=== PATIENT | male | born 1980 | race African-American/Black ===

== ENCOUNTER 2019-01-26 08:05 | Emergency (ER) | payer MEDICARE, MEDICAID ==
[~2019-01-26] VITALS: Ht 195.6 cm; Wt 148.0 kg
[~2019-01-26 08:05] MED LIST: HYDROCHLOROTHIAZIDE; INSULIN; LISINOPRIL; LORAZEPAM; METFORMIN; PANTOPRAZOLE; RISPERIDONE; TRAZODONE
[2019-01-26] MEDS ORDERED: LIDOCAINE HCL/PF 1% 10 MG/ML 5ML VIAL IJ ONE (08:45)
[2019-01-26 08:59] LABS: BASOPHILS % 0.4 % (0.0-2.0); EOSINOPHILS % 1.3 % (0.0-5.0); HEMATOCRIT. 36.8 % (42.0-52.0); HEMOGLOBIN. 12.3 g/dL (14.0-18.0); LYMPHOCYTES % 40.2 % (20.0-50.0); MEAN CORPUSCULAR HEMOGLOBIN 31.3 pg (28.0-32.0); MEAN CORPUSCULAR VOLUME 93.5 fL (80.0-94.0); MEAN PLATELET VOLUME 8.6 fl (7.4-10.4); MONOCYTES % 8.9 % (2.0-8.0); NEUTROPHILS % 49.2 % (40.0-76.0); PLATELET 249 x1000/uL (130-400); RED BLOOD CELL COUNT 3.94 mill/uL (4.7-6.1); RED CELL DISTRIBUTION WIDTH 13.9 % (11.6-14.6)
[2019-01-26 09:03] LABS: CLARITY URINE CLEAR (CLEAR); COLOR URINE YELLOW (YELLOW); KETONES URINE TRACE (NEGATIVE); LEUKOCYTE ESTERASE URINE NEGATIVE (NEGATIVE); NITRITE URINE NEGATIVE (NEGATIVE); OCCULT BLOOD URINE NEGATIVE (NEGATIVE); PH URINE 6.5 (4.5-8.0); PROTEIN URINE NEGATIVE (NEGATIVE); SPECIFIC GRAVITY URINE 1.043 (1.005-1.030)
[2019-01-26 09:07] LABS: CHLORIDE 104 mEq/L (98-107)
[2019-01-26 09:11] LABS: ETHANOL BLOOD < 10 mg/dL
[2019-01-26 09:16] LABS: *BARBITURATES SCREEN URINE NEGATIVE (NEGATIVE); *BENZODIAZEPINES SCREEN URINE NEGATIVE (NEGATIVE); *COCAINE SCREEN URINE NEGATIVE (NEGATIVE); METHADONE URINE SCREEN NEGATIVE (NEGATIVE)
[2019-01-26 09:17] LABS: CANNABINOID URINE SCREEN NEGATIVE (NEGATIVE); OPIATES URINE SCREEN NEGATIVE (NEGATIVE); PHENCYCLIDINE URINE SCREEN NEGATIVE (NEGATIVE)
[2019-01-26 09:19] LABS: *AMPHETAMINES SCREEN URINE NEGATIVE (NEGATIVE)
[2019-01-26 12:50] VITALS: BP 147/89
== END 2019-01-26 12:51 | disposition home or self-care (01) ==
LOC: ER 08:20
DX: S61.511A Laceration without foreign body of right wrist, initial encounter (principal); X58.XXXA Exposure to other specified factors, initial encounter; Y93.89 Activity, other specified; Y92.89 Other specified places as the place of occurrence of the external cause; Y99.8 Other external cause status; J45.909 Unspecified asthma, uncomplicated; F32.9 Major depressive disorder, single episode, unspecified; E11.9 Type 2 diabetes mellitus without complications; I10 Essential (primary) hypertension; F17.200 Nicotine dependence, unspecified, uncomplicated; Z98.890 Other specified postprocedural states; Z79.899 Other long term (current) drug therapy; Z88.1 Allergy status to other antibiotic agents; Z88.8 Allergy status to other drugs, medicaments and biological substances
CPT/HCPCS: 12002; 36415; 80053; 80305; 80320; 81003; 82962; 85025; 99283; J3490; G0480

== ENCOUNTER 2024-01-24 18:00 | Emergency (ER) | payer OTHER, BC, MEDICAID ==
[~2024-01-24] VITALS: Ht 170.2 cm; Wt 85.0 kg
[2024-01-24 18:03] VITALS: BP 148/86; PULSE 70; RESP 16; TEMP 98.4; O2SAT 100
== END 2024-01-24 19:00 | disposition left against medical advice (07) ==
LOC: ER 18:00
DX: R07.89 Other chest pain (principal); Z53.21 Procedure and treatment not carried out due to patient leaving prior to being seen by health care provider

== ENCOUNTER 2024-06-03 08:16 | Emergency (ER) | payer OTHER, BC ==
[~2024-06-03] VITALS: Ht 205.7 cm; Wt 138.4 kg
[2024-06-03 08:18] VITALS: O2SAT 96
[2024-06-03 08:19] VITALS: BP 162/85; RESP 16; TEMP 37.1; O2SAT 98
[2024-06-03 08:38] VITALS: PULSE 88
[2024-06-03 08:58] VITALS: TEMP 98.7
[2024-06-03] MEDS: ACETAMINOPHEN 325MG TABLET PO ONE (08:58)
[2024-06-03] MEDS ORDERED: ACET-2708 MT (09:36)
[2024-06-03] MEDS: BACITRACIN ZINC OINT UDPKT TOP ONE (09:53)
== END 2024-06-03 09:54 | disposition home or self-care (01) ==
LOC: ER 08:16
DX: S00.83XA Contusion of other part of head, initial encounter (principal); E11.9 Type 2 diabetes mellitus without complications; Z88.8 Allergy status to other drugs, medicaments and biological substances; Z79.899 Other long term (current) drug therapy; Z86.73 Personal history of transient ischemic attack (TIA), and cerebral infarction without residual deficits; W01.0XXA Fall on same level from slipping, tripping and stumbling without subsequent striking against object, initial encounter; Y93.89 Activity, other specified; Y92.89 Other specified places as the place of occurrence of the external cause; Y99.8 Other external cause status
CPT/HCPCS: 70486; 99284

== ENCOUNTER 2024-08-19 06:53 | Emergency (ER) | payer OTHER, BC ==
[~2024-08-19] VITALS: Ht 199.4 cm; Wt 110.5 kg
[~2024-08-19 06:53] MED LIST changes: +ACET-2708 MT
[2024-08-19 07:02] VITALS: O2SAT 99
[2024-08-19] MEDS: ACETAMINOPHEN 325MG TABLET PO ONE (08:16)
[2024-08-19] MEDS: IBUPROFEN 800MG TABLET PO ONE (08:16)
[2024-08-19 11:16] VITALS: BP 131/73; PULSE 81; RESP 18; TEMP 36.8; O2SAT 97
[2024-08-19] MEDS ORDERED: ACET-2708 MT (11:19)
[2024-08-19] MEDS ORDERED: IBUP-1525 MT (11:19)
== END 2024-08-19 11:20 | disposition home or self-care (01) ==
LOC: ER 06:53
DX: S60.222A Contusion of left hand, initial encounter (principal); S30.0XXA Contusion of lower back and pelvis, initial encounter; J45.909 Unspecified asthma, uncomplicated; F32.A Depression, unspecified; E11.9 Type 2 diabetes mellitus without complications; Z91.010 Allergy to peanuts; Z88.8 Allergy status to other drugs, medicaments and biological substances; Z88.5 Allergy status to narcotic agent; Z79.899 Other long term (current) drug therapy; Z86.73 Personal history of transient ischemic attack (TIA), and cerebral infarction without residual deficits; Y04.0XXA Assault by unarmed brawl or fight, initial encounter; Y93.89 Activity, other specified; Y92.89 Other specified places as the place of occurrence of the external cause; Y99.8 Other external cause status
CPT/HCPCS: 72100; 73100; 73130; 99284

== ENCOUNTER 2024-08-22 10:27 | Emergency (ER) | payer OTHER, BC ==
[~2024-08-22] VITALS: Ht 193 cm; Wt 113.0 kg
[~2024-08-22 10:27] MED LIST changes: +IBUP-1525 MT
[2024-08-22 10:31] VITALS: O2SAT 95
[2024-08-22 11:08] LABS: CLARITY URINE CLEAR (CLEAR); COLOR URINE YELLOW (YELLOW); GLUCOSE URINE 3+ (NEGATIVE); KETONES URINE NEGATIVE (NEGATIVE); LEUKOCYTE ESTERASE URINE NEGATIVE (NEGATIVE); NITRITE URINE NEGATIVE (NEGATIVE); OCCULT BLOOD URINE NEGATIVE (NEGATIVE); PH URINE 6.5 (4.5-8.0); PROTEIN URINE 1+ (NEGATIVE); SPECIFIC GRAVITY URINE 1.036 (1.005-1.030); UROBILINOGEN URINE 0.2 E.U./dL (0.2-1.0)
[2024-08-22 11:22] LABS: BACTERIA URINE NONE SEEN; RBC URINE 0-2 /hpf (0-2); SQUAMOUS EPITHELIAL CELL URINE RARE /lpf (RARE/1+); WBC URINE 0-2 /hpf (0-2); YEAST URINE NONE SEEN
[2024-08-22 11:25] LABS: BASOPHILS % 0.5 % (0.0-2.0); EOSINOPHILS % 1.1 % (0.0-5.0); HEMATOCRIT. 34.5 % (42.0-52.0); HEMOGLOBIN. 11.3 g/dL (14.0-18.0); LYMPHOCYTES % 31.8 % (20.0-50.0); MEAN CORPUSCULAR HGB CONC 32.8 g/dL (31.0-37.0); MEAN CORPUSCULAR VOLUME 94.4 fL (80.0-94.0); MEAN PLATELET VOLUME 7.9 fl (7.4-10.4); NEUTROPHILS % 59.6 % (40.0-76.0); PLATELET 317 x1000/uL (130-400); RED BLOOD CELL COUNT 3.66 mill/uL (4.7-6.1); RED CELL DISTRIBUTION WIDTH 13.4 % (11.6-14.6); WHITE BLOOD COUNT 8.3 x1000/uL (4.5-11.0)
[2024-08-22 11:35] LABS: *AMPHETAMINES SCREEN URINE NEGATIVE (NEGATIVE); *BARBITURATES SCREEN URINE NEGATIVE (NEGATIVE); *BENZODIAZEPINES SCREEN URINE NEGATIVE (NEGATIVE); *COCAINE SCREEN URINE NEGATIVE (NEGATIVE); CANNABINOID URINE SCREEN PRESUMPTIVE POSITIVE (NEGATIVE); ECSTASY MDMA SCREEN URINE NEGATIVE (NEGATIVE); METHADONE URINE SCREEN NEGATIVE (NEGATIVE); OPIATES URINE SCREEN NEGATIVE (NEGATIVE); PHENCYCLIDINE URINE SCREEN NEGATIVE (NEGATIVE)
[2024-08-22 11:38] LABS: CARBON DIOXIDE 26 mEq/L (21-32); CHLORIDE 109 mEq/L (98-107); SODIUM 143 mEq/L (136-145)
[2024-08-22 11:43] LABS: CREATININE 0.8 mg/dL (0.6-1.3)
[2024-08-22 11:44] LABS: ETHANOL BLOOD < 10 mg/dL (<10); GLUCOSE 282 mg/dL (70-105); UREA NITROGEN BLOOD 10 mg/dL (9-23)
[2024-08-22 11:45] LABS: ACETAMINOPHEN < 2 ug/mL (10-30)
[2024-08-23] MEDS ORDERED: TRAZ-252 PO (09:38)
[2024-08-23] MEDS ORDERED: GLIP10TA17 PO (09:38)
[2024-08-23] MEDS ORDERED: METF-415 PO (09:38)
[2024-08-23] MEDS ORDERED: GUAN1TAB37 PO (09:38)
[2024-08-23] MEDS ORDERED: DES150 PO (09:38)
[2024-08-23] MEDS ORDERED: ATOR40TA70 PO (09:38)
[2024-08-23] MEDS ORDERED: OLAN5TAB74 PO (09:38)
[2024-08-23] MEDS ORDERED: PANT40TA51 PO (09:38)
[2024-08-23] MEDS ORDERED: HYDR-3992 PO (09:38)
[2024-08-23] MEDS ORDERED: AMLO5TAB88 PO (09:38)
[2024-08-23] MEDS ORDERED: HALO5TAB2 PO (09:38)
[2024-08-23] MEDS ORDERED: APIX5TAB PO (09:38)
[2024-08-23] MEDS ORDERED: OLAN10TA72 PO (09:38)
[2024-08-23] MEDS ORDERED: ARIP15TA66 PO (09:38)
[2024-08-23] MEDS ORDERED: CHLO100T35 PO (09:38)
[2024-08-23] MEDS ORDERED: LISI20TA31 PO (09:38)
[2024-08-23] MEDS ORDERED: OLANZAPINE 5MG TABLET ODT PO SCH (10:00)
[2024-08-23] MEDS: OLANZAPINE 5MG TABLET ODT PO SCH (10:04)
[2024-08-23] MEDS: INSULIN LISPRO 100 UNITS/ML SUBCUT ONE ×3 (19:16→21:55)
[2024-08-23] MEDS ORDERED: DEXTROSE 50% WATER 50ML SYRINGE IV PRN (22:45)
[2024-08-24] MEDS: INSULIN LISPRO 100 UNITS/ML SUBCUT SCH (09:19)
[2024-08-24] MEDS: BLOOD SUGAR DIAGNOSTIC STRIP TEST SCH (09:19)
[2024-08-24] MEDS: METFORMIN HCL 500MG TABLET PO SCH (09:20)
[2024-08-24] MEDS: INSULIN GLARGINE 100 UNITS/ML SUBCUT SCH (10:15)
[2024-08-24] MEDS: HYDRALAZINE HCL 100MG TABLET PO ONE (11:58)
[2024-08-24 12:04] VITALS: BP 160/98; PULSE 116; RESP 16; TEMP 36.8; O2SAT 99
[2024-08-24] MEDS ORDERED: INSULIN GLARGINE 100 UNITS/ML SUBCUT SCH (22:00)
== END 2024-08-24 12:15 ==
LOC: ER 10:27
DX: R45.851 Suicidal ideations (principal); E11.9 Type 2 diabetes mellitus without complications; F32.A Depression, unspecified; J45.909 Unspecified asthma, uncomplicated; E78.5 Hyperlipidemia, unspecified; I10 Essential (primary) hypertension; F25.9 Schizoaffective disorder, unspecified; Z20.822 Contact with and (suspected) exposure to COVID-19; Z79.899 Other long term (current) drug therapy; Z86.73 Personal history of transient ischemic attack (TIA), and cerebral infarction without residual deficits; Z79.1 Long term (current) use of non-steroidal anti-inflammatories (NSAID)
CPT/HCPCS: 99285; 87426; 80048; 80307; 85025; 36415; 81003; 96372 ×2; 82962 ×2; G0480; J1815 ×3; 80305; 80320; 80329

== ENCOUNTER 2024-11-25 09:51 | Emergency (ER) | payer OTHER, BC ==
[~2024-11-25] VITALS: Ht 182.9 cm; Wt 114.0 kg
[~2024-11-25 09:51] MED LIST changes: -ACET-2708 MT; +AMLO5TAB88 PO; +APIX5TAB PO; +ARIP15TA66 PO; +ATOR40TA70 PO; +CHLO100T35 PO; +DES150 PO; +GLIP10TA17 PO; +GUAN1TAB37 PO; +HALO5TAB2 PO; +HYDR-3992 PO; -HYDROCHLOROTHIAZIDE; -IBUP-1525 MT; -INSULIN; +LISI20TA31 PO; -LISINOPRIL; -LORAZEPAM; +METF-415 PO; -METFORMIN; +OLAN10TA72 PO; +OLAN5TAB74 PO; +PANT40TA51 PO; -PANTOPRAZOLE; -RISPERIDONE; +TRAZ-252 PO; -TRAZODONE
[2024-11-25 09:53] VITALS: TEMP 36.9; O2SAT 97
[2024-11-25] MEDS: IBUPROFEN 600MG TABLET PO ONE (10:22)
[2024-11-25 12:31] VITALS: BP 145/83; PULSE 99; RESP 18; O2SAT 100
== END 2024-11-25 12:29 | disposition home or self-care (01) ==
LOC: ER 09:51
DX: S82.002A Unspecified fracture of left patella, initial encounter for closed fracture (principal); E11.9 Type 2 diabetes mellitus without complications; F20.9 Schizophrenia, unspecified; J45.909 Unspecified asthma, uncomplicated; Z86.73 Personal history of transient ischemic attack (TIA), and cerebral infarction without residual deficits; Z79.899 Other long term (current) drug therapy; Z91.010 Allergy to peanuts
CPT/HCPCS: 29505; 73562; 73564; 99284